=== PATIENT | male | born 1995 | race Caucasian/White ===

== ENCOUNTER 2016-06-25 23:40 | Emergency (ER) | payer MEDICAID ==
[~2016-06-25] VITALS: Ht 172.7 cm; Wt 68.0 kg
[~2016-06-25 23:40] MED LIST: ANUSOL-HC2.5% EX; BACTRIM DS 8001 TA1 PO; BACTROBAN 2% C1 INCH EX; BACTROBAN2% TP; FLEXERIL10 MG PO; GABAPENTIN100 MG PO; KEFLEX 250MG.250 MG PO; KEFLEX 500MG.500 MG PO; KEFLEX500 M1 PO; MAGNESIUM CITRA1 BOT PO; MEDROL 4MG. DOSE4 MG PO; MOTRIN400 MG PO; NIZORAL 2%15 GM/TUBE EX; NOMEDS *; NOMEDS XX; PREDNICOT10 MG PO; PREDNISONE 20MG20 MG PO; SEPTRA DS 800 M1 TAB PO; VOLTAREN75 MG PO; ZITHROMAX Z PA250 MG PO; ZOFRAN ODT4 MG PO
[2016-06-25] MEDS ORDERED: GABAPENTIN 600600 MG PO (23:54)
[2016-06-25] MEDS ORDERED: CYCLOBENZAPRINE10 M1 OR (23:54)
--- OUTSIDE RECORDS SUMMARY | 2016-06-26 00:16 | External Medical Summary Rpt ---
Author Author , Organization [employer] Address Unknown Phone Unavailable Care Team Providers Care Dye Weigher Helper Name Role Phone Michelle STALLWORTH MD PSC, Michelle Unavailable Unavailable Rema STALLWORTH MD PSC BEINEKE, SILVINOINEDAVID Unavailable Unavailable BESSON ABRIL, BESSON Unavailable Unavailable ABRIL [facility] Unavailable Unavailable SERVICE, [employer] [facility] Unavailable Unavailable SERVICE, [employer] [facility] SALVATORE CLAUDIA, Unavailable Unavailable ASLVATORE CLAUDIA [facility] Unavailable [place]available [place], [facility] [place] [facility] Unavailable [place] [facility] SARA RUIZ Unavailable Unavailable SARA LAMINE, SARA Unavailable Unavailable LAMINE MARLEN RUIZ, Unavailable Unavailable MARLEN RUIZ [facility] Unavailable Unavailable INC, [facility] Unavailable Unavailable HOSPITAL P, [facility], Unavailable Unavailable [facility] Unavailable Unavailable IMAGING ASS, [facility] Unavailable Unavailable SERVICES, [facility], Unavailable Unavailable [facility], [facility]available Unavailable PLL, [facility], [facility] ELMIRA TOD, ELMIRA TOD Unavailable Unavailable NU JOSHUA, NU Unavailable Unavailable JOSHUA NU JOSHUA, NU Unavailable Unavailable JOSHUA SADEK MOH, SADEK MOH Unavailable Unavailable SOKAN BAB, SOKAN BAB Unavailable Unavailable [facility], Unavailable Unavailable [facility] SOTINGEANU BIBI, Unavailable Unavailable SOTINGEANU BIBI [facility] Unavailable Unavailable #[id number], [facility] # Unavailable Unavailable [id number], [facility] # [id number] LACIE LAGUERRE, LACIE Unavailable Unavailable FOR MURPHY MEEK, Unavailable Unavailable MURPHY MEEK, BASIM Martinez Unavailable Unavailable Michelle STALLWORTH WRIGHT, Unavailable Unavailable Michelle Hodgson Purpose Continuity of Care Document - 04-21-2008 through 2016 Problems Code Diagnosis DOS Provider Status [id number] PAIN IN 03-02-2016 [facility] [place] [id number] UNSPECIFIED 03-02-2016 [facility], LESSER TOES PLLC INITIAL ENCNTR Z720 TOBACCO USE 03-02-2016 [facility] K529 NONINFECTIV 02-25-2016 [facility] E PHYSICIANS GASTROENTER GROUP ITIS & COLITIS UNS M545 LOW BACK 11-22-2015 [facility] PAIN PHYSICIANS GROUP 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 L739 FOLLICULAR 09-16-2015 [facility] DISORDER PHYS[facility], UNSPECIFIED PLLC K649 UNSPECIFIED 07-28-2015 [facility] PHYSICIANS HEMORRHOIDS GROUP K640 FIRST 07-25-2015 [facility] DEGREE PHYS[facility]ANS, HEMORRHOIDS PLLC [id number] WEDGE 07-21-2015 [facility] COMPRS FX PHYSICIANS UNS LUMBAR GROUP VERT INIT ENC CLOS FX R202 PARESTHESIA 01-15-2015 [facility] R42 DIZZINESS 01-15-2015 [facility] P [id number] FOREIGN 01-15-2015 [facility] BODY IN PHYSICIANS, MOUTH PLLC INITIAL ENCOUNTER [id number] UNS ADVERS 01-15-2015 [facility] EFFECT [facility]ANS, DRUG/MEDICA [facility] MENT INITIAL ENCNTR 5589 OTH&UNSPEC 09-05-2014 [facility] NONINFECTIO PHYSICIANS, US PLL GASTROENTER ITIS&COLITI S 6822 CELLULITIS 03-22-2014 [facility] P 1119 UNSPECIFIED 03-06-2012 [facility] DERMATOMYCO SERVICES SIS 1179 OTHER AND 03-06-2012 [facility] UNSPECIFIED [facility] MYCOSES INC 6868 OTH SPEC 03-06-2012 [facility] INFECTIONS INC SKIN&SUBCUT TISSUE 12805 DEGEN 04-25-2011 [place] 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 7242 LUMBAGO 04-25-2011 NU JOSHUA 95908 PATHOLOGIC 04-25-2011 [place] FRACTURE OF MEDICAL VERTEBRAE IMAGING ASS 4660 ACUTE 04-10-2010 [facility]ON[facility]IS [facility] 76304 PAIN IN 01-30-2010 [place] JOINT MEDICAL PELVIC IMAGING ASS REGION AND THIGH 24996 OTHER 01-30-2010 [place] DISORDER OF MEDICAL COCCYX IMAGING ASS 96236 CONTUSION 01-30-2010 [facility] 71250 OTHER 01-30-2010 [place] INJURY OF MEDICAL OTHER SITES IMAGING ASS OF TRUNK 29437 ABDOMINAL 12-21-2009 A Rema FERNANDEZ MD PSC GENERALIZED 76954 ABDOMINAL 12-20-2009 [place] PAIN, MEDICAL UNSPECIFIED IMAGING ASS SITE 37341 ACUTE 12-15-2009 [facility]OUS [facility] OTITIS INC MEDIA 3829 UNSPECIFIED 12-15-2009 [facility] OTITIS [facility]ERG[facility] MEDIA SERVICES 3899 UNSPECIFIED 12-15-2009 [facility] LOSS INC 0088 INTESTINAL 10-05-2009 A Rema STALLWROTH INFECTION PSC DUE TO OTHER ORGANISM NEC 6929 CONTACT 08-31-2009 A Rema STALLWORTH DERMATITIS& [facility] OTHER [facility] DUE UNSPEC CAUSE 7821 RASH AND 08-28-2009 [facility] OTHER HOSPITAL NONSPECIFIC SKIN ERUPTION V583 ATTENTION 06-28-2009 A Rema MACIAS MD [facility] DRESSINGS AND SUTURES 8910 OPEN WOUND 06-18-2009 [facility] KNEE [facility]ERG[facility]Y LEG&ANK SERVICES WITHOUT ASSOCIATES MENTION COMP 0340 STREPTOCOCC 11-27-2008 A Rema WANG MD [facility] THROAT 4659 ACUTE URIS 11-09-2008 A Rema BASS PSC UNSPECIFIED SITE 7862 COUGH 11-09-2008 A Rema STALLWORTH MD [facility] 6926 CONTACT 05-19-2008 [facility] DERMATITIS& EMERGENCY OTHER SERVICES [facility] DUE ASSOCIATES TO PLANTS 0549 HERPES 05-18-2008 A Rema STALLWORTH SIMPLEX PSC WITHOUT MENTION OF COMPLICATIO N Allergies, Adverse Reactions, Alerts Type Drug Allergy Adverse Reaction to Substance Substance Reaction Severity No Known Allergies - Unknown Mild Nka Medications Na ND Rx Da Fi Fi Am Da Di Ph RX Ph St me C No te ll ll ou ys ag ar # ys at rm s nt no ma ic us Or Da si cy ia de te s n re d CY 00 04 05 60 30 00 HO Ac CL 60 -0 -1 .0 00 ME ti OB 33 7- 2- 00 06 TO ve EN 07 20 20 08 WN ZA 93 17 17 24 ND 2 31 PH IN AR E MA 10 CY MG OF TA CY BL NT ET HI AN A GA 68 04 05 90 30 00 HO Ac BA 00 -0 -1 .0 00 ME ti PE 10 7- 2- 00 06 TO ve NT 00 20 20 08 WN IN 60 17 17 24 3 32 PH 60 AR 0 MA MG CY TA OF BL ET CY NT HI AN A CY 00 03 04 60 30 00 HO Ac CL 60 -0 -0 .0 00 ME ti OB 33 2- 7- 00 06 TO ve EN 07 20 20 08 WN ZA 93 17 17 24 ND 2 31 PH IN AR E MA 10 CY MG OF TA CY BL NT ET HI AN A GA 68 03 04 90 30 00 HO Ac BA 00 -0 -0 .0 00 ME ti PE 10 2- 7- 00 06 TO ve NT 00 20 20 08 WN IN 60 17 17 24 3 32 PH 60 AR 0 MA MG CY TA OF BL ET CY NT HI AN A ND 59 02 03 10 5 00 HO Ac ED 74 -2 -3 .0 00 ME ti NI 60 4- 1- 00 06 TO ve SO 17 20 20 08 WN NE 50 17 17 21 9 08 PH 20 AR MA MG CY TA OF BL ET CY NT HI AN A AZ 50 02 03 6. 5 00 HO Ac IT 11 -2 -3 00 00 ME ti HR 10 4- 1- 0 06 TO ve OM 78 20 20 08 WN YC 75 17 17 21 IN 1 09 PH AR 25 MA 0 CY MG OF TA BL CY ET NT HI AN A CY 00 01 02 60 30 00 HO Ac CL 60 -2 -2 .0 00 ME ti OB 33 5- 4- 00 06 TO ve EN 07 20 20 08 WN ZA 93 17 17 01 ND 2 82 PH IN AR E MA 10 CY MG OF TA CY BL NT ET HI AN A GA 01 02 90 30 00 HO Ac BA 00 -2 -2 .0 00 ME ti PE 10 5- 4- 00 06 TO ve NT 00 20 20 08 WN IN 60 17 17 01 3 83 PH 60 AR 0 MA MG CY TA OF BL ET CY NT HI AN A ND 00 01 02 30 10 00 HO Ac OM 60 -1 -1 .0 00 ME ti ET 35 3- 7- 00 06 TO ve FIERRO 43 20 20 07 WN ZI 83 17 17 95 NE 0 04 PH AR 25 MA CY MG OF TA BL CY ET NT HI AN A LO 00 01 02 15 5 00 HO Ac PE 37 -1 -1 .0 00 ME ti RA 82 3- 7- 00 06 TO ve OH 10 20 20 07 WN DE 00 17 17 95 2 1 03 PH AR MG MA CY CA PS OF UL E CY NT HI AN A GA 12 01 90 30 00 HO Ac BA 00 -2 -2 .0 00 ME ti PE 10 3- 7- 00 06 TO ve NT 00 20 20 07 WN IN 60 16 17 31 3 92 PH 60 AR 0 MA MG CY TA OF BL ET CY NT HI AN A CY 00 12 01 60 30 00 HO Ac CL 60 -2 -2 .0 00 ME ti OB 33 3- 7- 00 06 TO ve EN 07 20 20 07 WN ZA 93 16 17 31 ND 2 91 PH IN AR E MA 10 CY MG OF TA CY BL NT ET HI AN A Ib 62 07 0 No up 58 -1 ro 40 2- Lo fe 74 20 ng n 60 13 er 40 1 0M Ac G ti Ta ve bl et AZ 00 02 02 0 4. 4 EA 21 GA Ac IT 09 -2 -[address] 44 IN ti HR 37 8- 8- 0 SI 58 EY ve OM 14 20 20 DE YC 61 11 11 OH IN 8 PH CH AR AE 25 MA L 0 CY S MG OF TA BL CY ET NT HI AN A 00 02 02 0 10 5 EA 21 GA Ac 14 -2 -[address] 44 IN ti 31 8- 8- 00 SI 57 EY ve 47 20 20 DE 31 11 11 OH 0 PH CH AR AE MA L CY S OF CY NT HI AN A DI 00 12 12 0 14 7 SO 36 GA Ac CL 37 -2 -2 .0 PE 06 IN ti OF 86 0- 0- 00 RS 39 EY ve EN 28 20 20 AC 11 10 10 FA OH 0 OH CH SO LY AE D L DR DR Castanon UG 75 MG TA B SM 49 11 11 0 29 1 EA 19 SO Ac 34 -0 -[address] 88 KA ti MA 80 8- 8- 00 SI 38 N ve GN 69 20 20 0 DE BA ES 64 10 10 BA IU 9 PH TU M AR ND CI MA E TR CY O AT E OF SO CHAMP CY TI NT ON HI AN A CE 00 11 11 0 21 7 EA 19 GA Ac PH 09 -0 -[address] 82 IN ti AL 33 4- 4- 00 SI 88 EY ve EX 14 20 20 DE IN 70 10 10 OH 5 PH CH 50 AR AE 0 MA L MG CY S CA OF PS UL CY E NT HI AN A 00 10 10 0 50 25 EA 19 MO Ac 06 -0 -[address] 41 SE ti 60 5- 5- 00 SI 51 S ve [address] 45 10 10 EP 5 PH HE AR N MA A CY OF CY NT HI AN A CE 68 05 05 0 21 7 WA 70 GA Ac PH 18 -0 -0 .0 L- 69 IN ti AL 00 7- 8- 00 MA 92 EY ve EX 12 20 20 RT 1 IN 20 10 10 OH 1 PH CH 50 AR AE 0 MA L MG CY S # CA PS 10 UL 05 E 91 EF 00 03 03 2 30 30 EA 16 MO Ac FE 00 -2 -[address] 88 SE ti XO 80 2- 2- 00 SI 85 S ve R [address] XR 32 10 10 EP 2 PH HE 75 AR N MA A MG CY CA OF PS UL CY E NT HI AN A AZ 00 02 02 00 6. 5 EA 16 WR Ac IT 09 -1 -[address] 31 IG ti HR 37 0- 6- 0 SI 88 HT ve OM 14 20 20 DE YC 61 10 10 AR IN 8 PH DY AR C 25 MA 0 CY MG OF TA CY BL NT ET HI AN A LO 45 02 02 00 10 10 EA 16 WR Ac RA 80 -1 -[address] 31 IG ti TA 20 0- 6- 00 SI 89 HT ve DI 65 20 20 DE NE 08 10 10 AR 7 PH DY 10 AR C MA MG CY TA OF BL CY ET NT HI AN A VE 65 10 11 00 30 30 WA 70 RI Ac NL 58 -1 -0 .0 L- 41 SH ti AF 00 6- 5- 00 MA 66 ER ve AX 30 20 20 RT 6 IN 20 09 09 RI E 9 PH CH HC AR AR L MA D ER CY 75 #5 91 MG TA B 59 10 10 00 20 10 WA 70 RI Ac 76 -1 -2 .0 L- 41 SH ti 21 6- 2- 00 MA 66 ER ve 05 20 20 RT 5 00 09 09 RI 5 PH CH AR AR MA D CY #5 91 VE 00 09 10 00 14 14 WA 70 WR Ac NL 09 -3 -0 .0 L- 39 IG ti AF 37 0- 8- 00 MA 17 HT ve AX 38 20 20 RT 9 IN 20 09 09 AR E 1 PH DY HC AR C L MA 75 CY MG #5 91 TA BL ET 60 09 10 00 18 5 EA 14 RI Ac 25 -2 -[address] 45 SH ti 80 8- 8- 00 SI 54 ER ve 23 20 20 0 DE 91 09 09 RI 6 PH CH AR AR MA D CY OF CY NT HI AN A AN 24 03 07 01 10 24 WA 70 WR Ac TI 20 -1 -1 .0 L- 12 IG ti PY 80 3- 6- 00 MA 19 HT ve RI 56 20 20 RT 9 NE 16 09 09 AR -B 2 PH DY EN AR C ZO MA CA CY IN E #[address] OP DE 51 04 04 00 30 4 EA 12 RI Ac SO 67 -0 -[address] 22 SH ti XI 21 6- 3- 00 SI 18 ER ve ME 27 20 20 DE TA 10 09 09 RI SO 1 PH CH NE AR AR MA D 0. CY 05 % OF CR CY EA NT M HI AN A 64 04 04 00 15 5 EA 12 RI Ac 45 -0 -[address] 22 SH ti 50 6- 3- 00 SI 17 ER ve 99 20 20 DE 39 09 09 RI 4 PH CH AR AR MA D CY OF CY NT HI AN A 64 04 04 01 15 5 EA 12 RI Ac 45 -0 -[address] 22 SH ti 50 6- 3- 00 SI 17 ER ve 99 20 20 DE 39 09 09 RI 4 PH CH AR AR MA D CY OF CY NT HI AN A CE 00 03 04 00 30 10 EA 12 WR Ac PH 09 -2 -[address] 08 IG ti AL 33 6- 9- 00 SI 23 HT ve EX 14 20 20 DE IN 70 09 09 AR 5 PH DY 50 AR C 0 MA MG CY CA OF PS CY UL NT E HI AN A 53 03 03 00 15 5 WA 70 GA Ac 74 -1 -2 .0 L- 11 IN ti 60 0- 6- 00 MA 54 EY ve 13 20 20 RT 7 10 09 09 OH 5 PH CH AR AE MA L CY S #5 91 CE 68 03 03 00 21 7 WA 70 GA Ac PH 18 -1 -2 .0 L- 11 IN ti AL 00 0- 6- 00 MA 54 EY ve EX 12 20 20 RT 8 IN 10 09 09 OH 1 PH CH 25 AR AE 0 MA L MG CY S CA #5 PS 91 UL E AN 24 03 03 00 10 24 WA 70 WR Ac TI 20 -1 -2 .0 L- 12 IG ti PY 80 3- 6- 00 MA 19 HT ve RI 56 20 20 RT 9 NE 16 09 09 AR -B 2 PH DY EN AR C ZO MA CA CY IN E #[address] OP Vital Signs 08-23-2012 07:07 Name Value Interpretat Reference Comment ion Range Body 97.8 [degF] Temperature BP 69 mm[Hg] Diastolic BP Systolic 113 mm[Hg] Heart 89 /min Rate/Pulse O2% 97 % Respiratory 18 /min Rate Procedures Procedure DOS Code [place] [address] [facility] MINIMUM 7 [facility] 2 VIEWS INC INC MRI 48667 [facility] SPINAL 6 [facility] CANAL INC INC LUMBAR W/O CONTRAST MATERIAL 3D 03764 MANGO CHASE RENDERING 6 MEDICAL CLAUDIA W/INTERP IMAGING & ASS POSTPROCE SS SUPERVISI ON THERAPEUT 24408 [facility] IC PX 1/> 6 [facility] AREAS INC INC EACH 15 MIN EXERCISES APPL 78500 [facility] MODALITY 6 [facility] 1/> AREAS INC INC ELEC STIMJ UNATTENDE D APPLICATI 30114 [facility] ON 6 [facility] MODALITY INC INC 1/> AREAS HOT/COLD PACKS MANUAL 87191 [facility] THERAPY 6 [facility] TQS 1/> INC INC REGIONS EACH 15 MINUTES MANUAL 44873 [facility] THERAPY 6 [facility] TQS 1/> INC INC REGIONS EACH 15 MINUTES APPLICATI 75159 [facility] ON 6 [facility] MODALITY INC INC 1/> AREAS HOT/COLD PACKS APPL 38328 [facility] MODALITY 6 [facility] 1/> AREAS INC INC ELEC STIMJ UNATTENDE D THERAPEUT 49587 [facility] IC PX 1/> 6 [facility] AREAS INC INC EACH 15 MIN EXERCISES PHYSICAL 33015 [facility] THERAPY 6 [facility] EVALUATIO INC INC N UNCLASSIF J3490 [facility] IED DRUGS 6 [facility] INC INC RADEX 70870 [facility] SPINE 6 MEDICAL LUMBOSACR IMAGING AL 2/3 ASS VIEWS ECG 10220 [facility] ROUTINE 5 [facility] ECG INC INC W/LEAST 12 LDS TRCG ONLY W/O I&R ECG 12-04-201 89836 [facility] ROUTINE 5 [facility] W/LEAST P 12 LDS I&R ONLY GROUND A0425 [facility] MILEAGE 5 AMBULANCE AMBULANCE PER SERVICE SERVICE STATUTE MILE AMBULANCE A0429 [facility] SERVICE 5 AMBULANCE AMBULANCE BLS SERVICE SERVICE EMERGENCY TRANSPORT CUL BACT 46985 [facility] XCPT 5 [facility] URINE INC INC BLOOD/STO OL AEROBIC ISOL CUL BACT 99271 [facility] AEROBIC 5 [facility] ADDL INC INC METHS DEFINITIV E EA ISOL SUSCEPTIB 01765 [facility] LTY STDY 5 [facility] ANTIMICRB INC INC IAL MICRO/AGA R DILUTJ RADEX 31572 [place] SALVATORE SPINE 2 MEDICAL CLAUDIA LUMBOSACR IMAGING AL 2/3 ASS VIEWS RADEX 06778 [facility] SPINE 2 [facility] LUMBOSACR INC INC AL MINIMUM 4 VIEWS IAADI 54216 [facility] INFLUENZA 1 [facility] B VIRUS INC INC IAADI 07589 [facility] INFFLUENZ 1 [facility] [place] [address] [facility] STREPTOCO 1 [facility] CCUS INC INC GROUP A RADEX 41204 [facility] SPINE 0 [facility] LUMBOSACR INC INC AL MINIMUM 4 VIEWS RADEX 88551 [facility] SACRUM & 0 [facility] COCCYX INC INC MINIMUM 2 VIEWS RADIOLOGI 98951 [facility] C 0 [facility] EXAMINATI INC INC ON PELVIS 1/2 VIEWS RADEX ABD 46916 [facility] COMPL 0 [facility] AQT ABD INC INC W/S/E/D VIEWS 1 VIEW CH BLOOD 75030 [facility] COUNT 0 [facility] COMPLETE INC INC AUTO&AUTO DIFRNTL WBC COMPREHEN 74539 [facility] SIVE 0 [facility] [address] [facility] R[facility] AMYLASE 0 [place] [address] [facility] LIPASE 0 [facility] INC INC SMPL 34819 WILFREDO RUIZ, REPAIR 0 EMERGENCY MARLEN S SCALP/NEC SERVICES K/AX/NETO T/TRUNK ASSOCIATE 2.6-7.5CM S CLOSURE 8659 [facility] SKIN&SUBC 0 [facility] INC TISSUE OTHER SITES IADNA 46991 Michelle BRUNO 9 BASIM Hodgson CCUS PSC GROUP A QUANTIFIC ATION IADNA 17249 Michelle BRUNO 9 BASIM Hodgson CCUS PSC GROUP A QUANTIFIC ATION Encounters Encounter Start End Date Code Location Performer Type Date EMERGENCY 01526 [facility] 7 7 [facility] VISIT LIMITED/M INOR PROB EMERGENCY 90340 [facility] RUIZ 7 7 PHYSICIAN [facility] S, [facility] T VISIT MODERATE SEVERITY HOSPITAL [facility] - 7 7 [facility] 41341 [facility] OUT[facility] 7 7 PHYSICIAN T VISIT S GROUP 25 MINUTES OFFICE 94571 [facility] OUTPATIEN 6 6 PHYSICIAN LAMINE T VISIT S GROUP 15 MINUTES HOSPITAL [facility] - 6 6 [facility] 62561 [facility] OUTPATIEN 6 6 PHYSICIAN LAMINE T VISIT S GROUP 15 MINUTES HOSPITAL [facility] - 6 6 [facility] EMERGENC[facility] 75655 [facility] GAMA 6 6 PHYSICIAN [facility] S, [facility] T VISIT MODERATE SEVERITY EMERGENCY 43336 [facility] 6 6 [facility] T VISIT LOW/MODER SEVERITY HOSPITAL [facility] - 6 6 [facility] HOSP[facility] - 6 6 [facility] OUTPATIEN INC T OFFICE 24227 [facility] SARA OUTPATIEN 6 6 PHYSICIAN LAMINE T VISIT S GROUP 10 MINUTES OFFICE 29627 [facility] ELMIRA TOD OUTPATIEN 6 6 PHYSICIAN T NEW 20 S GROUP MINUTES OFFICE 42007 [facility] SARA OUTPATIEN 6 6 PHYSICIAN LAMINE T VISIT S GROUP 10 MINUTES EMERGENCY 44451 [facility] 6 6 [facility] DEPARTMEN INC T VISIT LIMITED/M INOR PROB HOSPITAL [facility] - 6 6 [facility] OUTPATIEN INC T EMERGENCY 30808 [facility] MEDELLIN 6 6 PHYSICIAN FOR DEPARTMEN S, PLLC T VISIT MODERATE SEVERITY OFFICE 50120 [facility] SARA OUTPATIEN 6 6 PHYSICIAN LAMINE T NEW 30 S GROUP MINUTES EMERGENCY 23059 [facility] RUIZ 6 6 PHYSICIAN LAMINE DEPARTMEN S, PLLC T VISIT MODERATE SEVERITY EMERGENCY 56612 [facility] 5 5 [facility] DEPARTMEN INC T VISIT LOW/MODER SEVERITY HOSPITAL [facility] - 5 5 [facility] OUTPATIEN INC T EMERGENCY 87683 [facility] MARISCAL 5 5 PHYSICIAN U BIBI DEPARTMEN S, PLLC T VISIT HIGH/URGE NT SEVERITY EMERGENCY 73195 [facility] MARISCAL 5 5 PHYSICIAN U BIBI DEPARTMEN S, PLLC T VISIT MODERATE SEVERITY EMERGENCY 88727 [facility] 5 5 [facility] DEPARTMEN INC T VISIT LOW/MODER SEVERITY HOSPITAL [facility] - 5 5 [facility] OUTPATIEN INC T Emergency SNOW Chapa MD (ER) 3 07:15 3 07:15 [facility] - 3 3 [facility] OUTPATIEN INC T EMERGENCY 96299 WILFREDO BUTT 3 3 EMERGENCY DEPARTMEN SERVICES T VISIT MODERATE SEVERITY EMERGENCY 37055 [facility] 3 3 [facility] DEPARTMEN INC T VISIT LIMITED/M INOR PROB EMERGENCY 15097 WILFREDO RUIZ 2 2 [facility] DEPARTMEN SERVICES T VISIT MODERATE SEVERITY OFFICE 63441 NU ROSSHER OUTPATIEN 2 2 JOSHUA JOSHUA T VISIT 15 MINUTES EMERGENCY 39938 [facility] 2 2 [facility] DEPARTMEN INC T VISIT LOW/MODER SEVERITY HOSPITAL [facility] - 2 2 [facility] OUTPATIEN INC T EMERGENCY 35655 WILFREDO RUIZ 1 1 EMERGENC[facility] DEPART[facility] SERVICES T VISIT HIGH/URGE NT SEVERITY HOSPITAL [facility] - 1 1 [facility] OUTPATIEN INC T EMERGENCY 93730 [facility] 1 1 [facility] DEPARTMEN INC T VISIT LOW/MODER SEVERITY HOSPITAL [facility] - 0 0 [facility] OUTPATIEN INC T EMERGENCY 86972 [facility] 0 0 [facility] DEPARTMEN INC T VISIT LOW/MODER SEVERITY OFFICE 23284 A Rema NUÑEZ 0 0 BASIM VAZQUEZ T VISIT PSC 15 MINUTES EMERGENCY 12064 WILFREDO BUTT DEPT 0 0 EMERGENCY VISIT SERVICES HIGH SEVERITY& THREAT [facility]K - 0 0 [facility] OUTPATIEN INC T EMERGENCY 05472 [facility] 0 0 [facility] DEPARTMEN INC T VISIT MODERATE SEVERITY EMERGENCY 63036 [facility] 0 0 [facility] DEPARTMEN INC T VISIT LOW/MODER SEVERITY EMERGENCY 04718 WILFREDO RUIZ 0 0 EMERGENCY [facility] DEPARTMEN SERVICES T VISIT MODERATE SEVERITY HOSPITAL [facility] - 0 0 [facility] OUTPATIEN INC T OFFICE 59427 Michelle NUÑEZ 0 0 BASIM VAZQUEZ T VISIT PSC 15 MINUTES OFFICE 67116 A Rema Martinez OUTPATIEN 0 0 BASIM VAZQUEZ T VISIT PSC 15 MINUTES OFFICE 87407 A Michelle DYER OUTPATIEN 0 0 BASIM Hodgson T VISIT PSC 15 MINUTES EMERGENCY 35045 [facility] 0 0 [facility] T VISIT LIMITED/M INOR [facility] BATOOL - 0 0 [facility] T OFFICE 65155 A Michelle DYER OUTPATIEN 0 0 BASIM Hodgson T VISIT PSC 15 MINUTES EMERGENCY 08052 WILFREDO RUIZ, 0 0 EMERGENCY [facility] SERVICES T VISIT MODERATE ASSOCIATE SEVERITY [facility] - 0 0 [facility] T EMERGENCY 20203 [facility] 0 0 [facility] VISIT LOW/MODER SEVERITY OFFICE 93319 A Michelle DYER OUTPATIEN 0 0 BASIM Hodgson T VISIT PSC 15 MINUTES OFFICE 38176 Michelle BRUNO OUTPATIEN 9 9 BASIM Hodgson T VISIT PSC 15 MINUTES OFFICE 97237 Michelle BRUNO OUTPATIEN 9 9 BASIM Hodgson T VISIT PSC 15 MINUTES EMERGENCY 52710 WILFREDO MEEK 9 9 EMERGENCY [facility] SERVICES T VISIT MODERATE ASSOCIATE SEVERITY EMERGENCY 97842 [facility] 9 9 [facility] DEPARTMEN INC T VISIT LIMITED/M [facility] - 9 9 [facility] OUTPATIEN INC T OFFICE 69414 Michelle BRUNO OUTPATIEN 9 9 BASIM Hodgson T VISIT PSC 15 MINUTES OFFICE 67703 Michelle BRUNO OUTPATIEN 9 9 BASIM Hodgson T VISIT PSC 15 MINUTES OFFICE 64104 Michelle BRUNO OUTPATIEN 9 9 BASIM Hodgson T VISIT PSC 15 MINUTES OFFICE 95419 Michelle BRUNO OUTDAVID 9 9 BASIM Hodgson T VISIT PSC 15 MINUTES EMERGENCY 45125 [facility] 9 9 [facility] INC T VISIT LOW/MODER SEVERITY HOSPITAL [facility] - 9 9 [facility] OUTPATIEN INC T EMERGENCY 37890 JOSEPH RUIZ, 9 9 [facility] T VISIT ON MODERATE SEVERITY
--- OUTSIDE RECORDS SUMMARY | 2016-06-26 00:16 | External Medical Summary Rpt ---
Author Author , Organization [employer] Address Unknown Phone Unavailable Care Team Providers Care Flavorings Compounder Name Role Phone Michelle STALLWORTH MD PSC, Michelle Unavailable Unavailable Rema STALLWORTH MD PSC BEINEKE, SILVINOINEDAVID Unavailable Unavailable BESSON ABRIL, BESSON Unavailable Unavailable ABRIL [facility] Unavailable Unavailable SERVICE, [facility] Unavailable Unavailable SERVICE, [facility] SALVATORE CLAUDIA, Unavailable Unavailable SALVATORE CLAUDIA [facility] Unavailable [place], [facility] [place] [facility] [place] [facility] SARA RUIZ Unavailable Unavailable SARA LAMINE, SARA Unavailable Unavailable LAMINE MARLEN RUIZ, Unavailable Unavailable MARLEN RUIZ [facility] Unavailable Unavailable INC, [facility] Unavailable Unavailable HOSPITAL P, [facility], Unavailable Unavailable [facility] Unavailable [facility]available IMAGING ASS, [facility] Unavailable Unavailable SERVICES, [facility], Unavailable Unavailable [facility], Unavailable Unavailable PLL, [facility], [facility] ELMIRA TOD, ELMIRA TOD Unavailable Unavailable NU JOSHUA, NU Unavailable Unavailable JOSHUA NU JOSHUA, NU Unavailable Unavailable JOSHUA SADEK MOH, SADEK MOH Unavailable Unavailable SOKAN BAB, SOKAN BAB Unavailable Unavailable [facility], Unavailable Unavailable [facility] SOTINGEANU BIBI, Unavailable Unavailable SOTINGEANU BIBI [facility] Unavailable Unavailable #[id number], [facility] # Unavailable Unavailable [id number], [facility] # [id number] LACIE LAGUERRE, LACIE Unavailable Unavailable FOR MURPHY MEEK, Unavailable Unavailable MURPHY MEEK, BASIM Martinez Unavailable Unavailable Michelle STALLWORTH WRIGHT, Unavailable Unavailable Michelle Hodgson Purpose Continuity of Care Document - 04-21-2008 through 2016 Problems Code Diagnosis DOS Provider Status [id number] PAIN IN 03-02-2016 [facility] [id number] UNSPECIFIED 03-02-2016 [facility], LESSER TOES PLLC INITIAL ENCNTR Z720 TOBACCO USE 03-02-2016 [facility] K529 NONINFECTIV 02-25-2016 [facility] E PHYSICIANS GASTROENTER GROUP ITIS & COLITIS UNS M545 LOW BACK 11-22-2015 [facility] PAIN PHYSICIANS GROUP 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 L739 FOLLICULAR 09-16-2015 [facility] DISORDER [facility], UNSPECIFIED PLLC K649 UNSPECIFIED 07-28-2015 [facility] HEMORRHOIDS GROUP K640 FIRST 07-25-2015 [facility] DEGREE [facility], HEMORRHOIDS PLLC [id number] WEDGE 07-21-2015 [facility] COMPRS FX PHYSICIANS UNS LUMBAR GROUP VERT INIT ENC CLOS FX R202 PARESTHESIA 01-15-2015 [facility] R42 DIZZINESS 01-15-2015 [facility] P [id number] FOREIGN 01-15-2015 [facility] B[facility] IN PHYSICIANS, MOUTH PLLC INITIAL ENCOUNTER [id number] UNS ADVERS 01-15-2015 [facility] EFFECT [facility]ANS, DRUG/[facility] MENT INITIAL ENCNTR 5589 OTH&UNSPEC 09-05-2014 [facility] NONINFECTIO PHYSICIANS, US PLL GASTROENTER ITIS&COLITI S 6822 CELLULITIS 03-22-2014 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 7242 LUMBAGO 04-25-2011 NU JOSHUA 17759 PATHOLOGIC 04-25-2011 [facility] FRACTURE OF MEDICAL VERTEBRAE IMAGING ASS 4660 ACUTE 04-10-2010 [facility] 59264 PAIN IN 01-30-2010 [facility] JOINT MEDICAL PELVIC IMAGING ASS REGION AND THIGH 89656 OTHER 01-30-2010 [facility] DISORDER OF MEDICAL COCCYX IMAGING ASS 63137 CONTUSION 01-30-2010 [facility] 09967 OTHER 01-30-2010 [facility] INJURY OF MEDICAL OTHER SITES IMAGING ASS OF TRUNK 32767 ABDOMINAL 12-21-2009 A Rema FERNANDEZ MD PSC GENERALIZED 42925 ABDOMINAL 12-20-2009 [facility] PAIN, MEDICAL UNSPECIFIED IMAGING ASS SITE 80270 ACUTE 12-15-2009 [facility] SEROUS [facility] OTITIS INC MEDIA 3829 UNSPECIFIED 12-15-2009 [facility]IS [facility]Y MEDIA SERVICES 3899 UNSPECIFIED 12-15-2009 [facility]ARING [facility] LOSS INC 0088 INTESTINAL 10-05-2009 A Rema STALLWORTH INFECTION PSC DUE TO OTHER ORGANISM NEC 6929 CONTACT 08-31-2009 A Rema STALLWORTH DERMATITIS& [facility] OTHER ECZEMA DUE UNSPEC CAUSE 7821 RASH AND 08-28-2009 [facility] OTHER HOSPITAL NONSPECIFIC SKIN ERUPTION V583 ATTENTION 06-28-2009 A Rema MACIAS MD [facility] DRESSINGS AND SUTURES 8910 OPEN WOUND 06-18-2009 [place] KNEE [facility]Y LEG&ANK SERVICES WITHOUT ASSOCIATES MENTION COMP 0340 STREPTOCOCC 11-27-2008 A Rema WANG MD [facility] THROAT 4659 ACUTE URIS 11-09-2008 A Rema BASS PSC UNSPECIFIED SITE 7862 COUGH 11-09-2008 A Rema STALLWORTH MD [facility] 6926 CONTACT 05-19-2008 [place] DERMATITIS& EMERGENCY OTHER SERVICES ECZEMA DUE ASSOCIATES [...] 08 WN ZA 93 17 17 24 RI 2 31 PH IN AR E MA [...] 08 WN ZA 93 17 17 24 RI 2 31 PH IN AR E MA [...] BL ET CY NT HI AN A RI 59 02 03 10 5 00 HO [...] 08 WN ZA 93 17 17 01 RI 2 82 PH IN AR E MA [...] BL ET CY NT HI AN A RI 00 01 02 30 10 00 HO [...] 82 3- 7- 00 06 TO ve AR 10 20 20 07 WN DE 00 [...] 07 WN ZA 93 16 17 31 RI 2 91 PH IN AR E MA [...] 20 20 DE YC 61 11 11 AR IN 8 PH CH AR AE 25 MA L 0 CY S MG OF TA BL CY ET NT HI AN A 00 02 02 0 10 5 EA 21 GA Ac 14 -2 -[address] 44 IN ti 31 8- 8- 00 SI 57 EY ve 47 20 20 DE 31 11 11 AR 0 PH CH AR AE MA L CY S OF CY NT HI AN A DI 00 12 12 0 14 7 SO 36 GA Ac CL 37 -2 -2 .0 PE 06 IN ti OF 86 0- 0- 00 RS 39 EY ve EN 28 20 20 AC 11 10 10 FA AR 0 AR CH SO LY AE D L DR [...] 20 20 DE IN 70 10 10 AR 5 PH CH 50 AR AE 0 [...] 20 RT 1 IN 20 10 10 AR 1 PH CH 50 AR AE 0 [...] 20 20 RT 7 10 09 09 AR 5 PH CH AR AE MA L CY S #5 91 CE 68 03 03 00 21 7 WA 70 GA Ac PH 18 -1 -2 .0 L- 11 IN ti AL 00 0- 6- 00 MA 54 EY ve EX 12 20 20 RT 8 IN 10 09 09 AR 1 PH CH 25 AR AE 0 [...] DOS Code Location Performer Comment RADEX TOE 65641 [facility] MINIMUM 7 [facility] 2 VIEWS INC INC MRI 90209 [facility] SPINAL 6 [facility] CANAL INC INC LUMBAR W/O CONTRAST MATERIAL 3D 37196 MANGO CHASE RENDERING 6 MEDICAL CLAUDIA W/INTERP IMAGING & ASS POSTPROCE SS SUPERVISI ON THERAPEUT 67973 [facility] IC PX 1/> 6 [facility] AREAS INC INC EACH 15 MIN EXERCISES APPL 48625 [facility] MODALITY 6 [facility] 1/> AREAS INC INC ELEC STIMJ UNATTENDE D APPLICATI 08408 [facility] ON 6 [facility] MODALITY INC INC 1/> AREAS HOT/COLD PACKS MANUAL 44625 [facility] THERAPY 6 [facility] TQS 1/> INC INC REGIONS EACH 15 MINUTES MANUAL 16415 [facility] THERAPY 6 [facility] TQS 1/> INC INC REGIONS EACH 15 MINUTES APPLICATI 00670 [facility] ON 6 [facility] MODALITY INC INC 1/> AREAS HOT/COLD PACKS APPL 75467 [facility] MODALITY 6 [facility] 1/> AREAS INC INC ELEC STIMJ UNATTENDE D THERAPEUT 10919 [facility] IC PX 1/> 6 [facility] AREAS INC INC EACH 15 MIN EXERCISES PHYSICAL 15209 [facility] THERAPY 6 [facility] EVALUATIO INC INC N UNCLASSIF J3490 [facility] IED DRUGS 6 [facility] INC INC RADEX 47263 [facility]ME[facility] SPINE 6 MEDICAL LUMBOSACR IMAGING AL 2/3 ASS VIEWS ECG 73722 [facility] ROUTINE 5 [facility] ECG INC INC W/LEAST 12 LDS TRCG ONLY W/O I&R ECG 12-04-201 83037 [facility] SNOW[place] ROUTINE 5 [facility] W/LEAST P 12 LDS I&R ONLY GROUND A0425 [facility] MILEAGE 5 AMBULANCE AMBULANCE PER SERVICE SERVICE STATUTE MILE AMBULANCE A0429 [facility] SERVICE 5 AMBULANCE AMBULANCE BLS SERVICE SERVICE EMERGENCY TRANSPORT CUL BACT 77262 [facility] XCPT 5 [facility] URINE INC INC BLOOD/STO OL AEROBIC ISOL CUL BACT 60271 [facility] AEROBIC 5 [facility] ADDL INC INC METHS DEFINITIV E EA ISOL SUSCEPTIB 08352 [facility] LTY STDY 5 [facility] ANTIMICRB INC INC IAL MICRO/AGA R DILUTJ RADEX 55173 [facility] SALVATORE SPINE 2 MEDICAL CLAUDIA LUMBOSACR IMAGING AL 2/3 ASS VIEWS RADEX 66890 [facility] SPINE 2 [facility] LUMBOSACR INC INC AL MINIMUM 4 VIEWS IAADI 80016 [facility] INFLUENZA 1 [facility] B VIRUS INC INC IAADI 19640 [facility] INFFLUENZ 1 [facility] [place] [address] [facility] STREPTOCO 1 [facility] CCUS INC INC GROUP A RADEX 50956 [facility] SPINE 0 [facility] LUMBOSACR INC INC AL MINIMUM 4 VIEWS RADEX 57755 [facility] SACRUM & 0 [facility] COCCYX INC INC MINIMUM 2 VIEWS RADIOLOGI 60052 [facility] C 0 [facility] EXAMINATI INC INC ON PELVIS 1/2 VIEWS RADEX ABD 89907 [facility] COMPL 0 [facility] AQT ABD INC INC W/S/E/D VIEWS 1 VIEW CH BLOOD 65585 [facility] COUNT 0 [facility] COMPLETE INC INC AUTO&AUTO DIFRNTL WBC COMPREHEN 00699 [facility] SIVE 0 [facility] [address] [facility] AMYLASE 0 [place] [address] [facility] LIPASE 0 [facility] INC INC SMPL 57915 WILFREDO RUIZ, REPAIR 0 EMERGENCY MARLEN S SCALP/NEC SERVICES K/AX/NETO T/TRUNK ASSOCIATE 2.6-7.5CM S CLOSURE 8659 [facility] SKIN&SUBC 0 [facility] INC INC TISSUE OTHER SITES IADNA 56357 Michelle BRUNO 9 BASIM Hodgson CCUS PSC GROUP A QUANTIFIC ATION IADNA 61270 Michelle BRUNO 9 BASIM Hodgson CCUS PSC GROUP A QUANTIFIC ATION Encounters Encounter Start End Date Code Location Performer Type Date EMERGENCY 55715 [facility] 7 7 [facility] T VISIT LIMITED/M INOR PROB EMERGENCY 02282 [facility] RUIZ 7 7 PHYSICIAN [facility] S, [facility] T VISIT MODERATE SEVERITY HOSPITAL [facility] - 7 7 [facility] [place] 816[facility] PHYSICIAN T VISIT S GROUP 25 MINUTES OFFICE 19822 [facility] OUTPATIEN 6 6 PHYSICIAN LAMINE T VISIT S GROUP 15 MINUTES HOSPITAL [facility] - 6 6 [facility] [place] OFF[facility] 71949 [facility] OUTPATIEN 6 6 PHYSICIAN LAMINE T VISIT S GROUP 15 MINUTES HOSPITAL ARMIK - 6 6 [facility] T EMERGENCY 80447 [facility] GAMA 6 6 PHYSICIAN [facility] S, [facility] T VISIT MODERATE SEVERITY EMERGENCY 33008 [facility] 6 6 [facility] T VISIT LOW/MODER SEVERITY HOSPITAL [facility] - 6 6 [facility] T HOSPITAL [facility] - 6 6 [facility] OUTPATIEN INC T OFFICE 90888 [facility] SARA OUTPATIEN 6 6 PHYSICIAN LAMINE T VISIT S GROUP 10 MINUTES OFFICE 86988 [facility] ELMIRA TOD OUTPATIEN 6 6 PHYSICIAN T NEW 20 S GROUP MINUTES OFFICE 21811 [facility] SARA OUTPATIEN 6 6 PHYSICIAN LAMINE T VISIT S GROUP 10 MINUTES EMERGENCY 62244 [facility] 6 6 [facility] DEPARTMEN INC T VISIT LIMITED/M INOR PROB HOSPITAL [facility] - 6 6 [facility] OUTPATIEN INC T EMERGENCY 67716 [facility] MEDELLIN 6 6 PHYSICIAN FOR DEPARTMEN S, PLLC T VISIT MODERATE SEVERITY OFFICE 21890 [facility] SARA OUTPATIEN 6 6 PHYSICIAN LAMINE T NEW 30 S GROUP MINUTES EMERGENCY 74428 [facility] RUIZ 6 6 PHYSICIAN LAMINE DEPARTMEN S, PLLC T VISIT MODERATE SEVERITY EMERGENCY 96353 [facility] 5 5 [facility] DEPARTMEN INC T VISIT LOW/MODER SEVERITY HOSPITAL [facility] - 5 5 [facility] OUTPATIEN INC T EMERGENCY 90958 [facility] MARISCAL 5 5 PHYSICIAN U BIBI DEPARTMEN [facility], PLLC T VISIT HIGH/URGE NT SEVERITY EMERGENCY 19447 [facility] MARISCAL 5 5 PHYSICIAN U [facility] T VISIT MODERATE SEVERITY EMERGENCY 19723 [facility] 5 5 [facility] DEPARTMEN INC T VISIT LOW/MODER SEVERITY HOSPITAL [facility] - 5 5 [facility] OUTPATIEN INC T Emergency SNOW Chapa MD (ER) 3 07:15 3 07:15 [facility] - 3 3 [facility] OUTPATIEN INC T EMERGENCY 99212 WILFREDO BUTT 3 3 EMERGENCY [facility] SERVICES T VISIT MODERATE SEVERITY EMERGENCY 88530 [facility] 3 3 [facility] DEPARTMEN INC T VISIT LIMITED/M INOR PROB EMERGENCY 61798 WILFREDO RUIZ 2 2 EMERGENCY [facility] DEPARTMEN SERVICES T VISIT MODERATE SEVERITY OFFICE 66828 NU ROSSHER OUTPATIEN 2 2 JOSHUA JOSHUA T VISIT 15 MINUTES EMERGENCY 74120 [facility] 2 2 [facility] DEPARTMEN INC T VISIT LOW/MODER SEVERITY HOSPITAL [facility] - 2 2 [facility] OUTPATIEN INC T EMERGENCY 55538 WILFREDO RUIZ 1 1 EMERGENCY [facility] DEPARTMEN SERVICES T VISIT HIGH/URGE NT SEVERITY HOSPITAL [facility] - 1 1 [facility] OUTPATIEN INC T EMERGENCY 69936 [facility] 1 1 [facility] DEPARTMEN INC T VISIT LOW/MODER SEVERITY HOSPITAL [facility] - 0 0 [facility] OUTPATIEN INC T EMERGENCY 23418 [facility] 0 0 [facility] DEPARTMEN INC T VISIT LOW/MODER SEVERITY OFFICE 33194 A Rema NUÑEZ 0 0 BASIM VAZQUEZ T VISIT PSC 15 MINUTES EMERGENCY 52767 WILFREDO BUTT DEPT 0 0 EMERGENCY VISIT SERVICES HIGH SEVERITY& THREAT [facility] - 0 0 [facility] OUTPATIEN INC T EMERGENCY 40792 [facility] 0 0 [facility] DEPARTMEN INC T VISIT MODERATE SEVERITY EMERGENCY 06786 [facility] 0 0 [facility] DEPARTMEN INC T VISIT LOW/MODER SEVERITY EMERGENCY 79747 WILFREDO RUIZ 0 0 EMERGENCY [facility] DEPARTMEN SERVICES T VISIT MODERATE SEVERITY HOSPITAL [facility] - 0 0 [facility] OUTPATIEN INC T OFFICE 29353 Michelle NUÑEZ 0 0 BASIM VAZQUEZ T VISIT PSC 15 MINUTES OFFICE 27489 A Rema Martinez OUTPATIEN 0 0 BASIM VAZQUEZ T VISIT PSC 15 MINUTES OFFICE 05497 A Michelle DYER OUTPATIEN 0 0 BASIM Hodgson T VISIT PSC 15 MINUTES EMERGENCY 09820 [facility] 0 0 [facility] T VISIT LIMITED/M INOR [facility] HOSPITAL [facility] - 0 0 [facility] T OFFICE 17103 A Michelle DYER OUTPATIEN 0 0 BASIM Hodgson T VISIT PSC 15 MINUTES EMERGENCY 97451 WILFREDO RUIZ, 0 0 EMERGENCY [facility] T VISIT MODERATE ASSOCIATE SEVERITY [facility] - 0 0 [facility] T EMERGENCY 84160 [facility] 0 0 [facility] VISIT LOW/MODER SEVERITY OFFICE 45097 A Michelle DYER OUTPATIEN 0 0 BASIM Hodgson T VISIT PSC 15 MINUTES OFFICE 03481 Michelle BRUNO OUTPATIEN 9 9 BASIM Hodgson T VISIT PSC 15 MINUTES OFFICE 85502 Michelle BRUNO OUTPATIEN 9 9 BASIM Hodgson T VISIT PSC 15 MINUTES EMERGENCY 24903 WILFREDO MEEK 9 9 EMERGENCY [facility] SERVICES T VISIT MODERATE ASSOCIATE SEVERITY EMERGENCY 63480 [facility] 9 9 [facility] DEPARTMEN INC T VISIT LIMITED/M [facility] - 9 9 [facility] OUTPATIEN INC T OFFICE 15036 Michelle BRUNO OUTPATIEN 9 9 BASIM Hodgson T VISIT PSC 15 MINUTES OFFICE 29232 Michelle BRUNO OUTPATIEN 9 9 BASIM Hodgson T VISIT PSC 15 MINUTES OFFICE 64441 Michelle BRUNO OUTPATIEN 9 9 BASIM Hodgson T VISIT PSC 15 MINUTES OFFICE 63057 Michelle BRUNO OUTDAVID 9 9 BASIM Hodgson T VISIT PSC 15 MINUTES EMERGENCY 60010 [facility] 9 9 [facility] INC T VISIT LOW/MODER SEVERITY HOSPITAL [facility] - 9 9 [facility] OUTPATIEN INC T EMERGENCY 96811 JOSEPH RUIZ, [address] [facility] T VISIT ON MODERATE SEVERITY
--- OUTSIDE RECORDS SUMMARY | 2016-06-26 00:20 | External Medical Summary Rpt ---
Author Author , Organization [employer] Address Unknown Phone Unavailable Care Team Providers Care Chemical Librarian Name Role Phone A Rema STALLWORTH MD PSC, Michelle Unavailable Unavailable Rema STALLWORTH MD PSC RICO GÓMEZ Unavailable Unavailable BESSON ABRIL, BESSON Unavailable Unavailable ABRIL DANIEL, DANIEL Unavailable Unavailable [facility] Unavailable Unavailable SERVICE, [facility] Unavailable Unavailable SERVICE, [facility] SALVATORE CLAUDIA, Unavailable Unavailable SALVATORE CLAUDIA [facility] [place]available [place]available [place], [facility] [place] [facility] [place] [facility] [place] SARA, SARA Unavailable Unavailable SARA LAMINE, SARA Unavailable Unavailable LAMINE MARLEN RUIZ, Unavailable Unavailable MARLEN RUIZ [facility] Unavailable Unavailable INC, [facility] Unavailable Unavailable HOSPITAL P, [facility] Unavailable Unavailable [facility] Unavailable Unavailable IMAGING ASS, [facility] DARIAN BIRD, DARIAN Unavailable Unavailable [facility] Unavailable Unavailable SERVICES, [facility] PATRICK CRISTINA, PATRICK Unavailable Unavailable [facility], Unavailable Unavailable [facility], Unavailable Unavailable [facility] ELMIRA TOD, ELMIRA TOD Unavailable Unavailable NU JOSHUA, NU Unavailable Unavailable JOSHUA NU JOSHUA, NU Unavailable Unavailable JOSHUA SADEK MOH, SADEK MOH Unavailable Unavailable SOKAN BAB, SOKAN BAB Unavailable Unavailable [facility], Unavailable Unavailable [facility] SOTINGEANU BIBI, Unavailable Unavailable SOTINGEANU BIBI [facility] Unavailable Unavailable #591, [facility] # Unavailable Unavailable [id number], [facility] # [id number] LACIE FOR, WALKER Unavailable Unavailable FOR MURPHY MEEK, Unavailable Unavailable MURPHY MEEK WRIGHT A Unavailable Unavailable Michelle STALLWORTH WRIGHT, Unavailable Unavailable Michelle Hodgson Purpose Continuity of Care Document - 04-21-2008 through 2016 Problems Code Diagnosis DOS Provider Status [id number] PAIN IN 03-02-2016 [place] LEFT TOES [facility] [id number] UNSPECIFIED 03-02-2016 [facility]ANS, LESSER TOES PLLC INITIAL ENCNTR Z720 TOBACCO USE 03-02-2016 [facility] K529 NONINFECTIV 02-25-2016 [facility] E PHYSICIANS GASTROENTER GROUP ITIS & COLITIS UNS M545 LOW BACK 11-22-2015 [facility] PAIN PHYSICIANS GROUP 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 L739 FOLLICULAR 09-16-2015 [facility] DISORDER PHYSIC[facility]ANS, UNSPECIFIED PLLC K649 UNSPECIFIED 07-28-2015 [facility] PHYSICIANS HEMORRHOIDS GROUP K640 FIRST 07-25-2015 [facility] DEGREE PHYSICIANS, HEMORRHOIDS PLLC [id number] WEDGE 07-21-2015 [facility] COMPRS FX PHYSICIANS UNS LUMBAR GROUP VERT INIT ENC CLOS FX R202 PARESTHESIA 01-15-2015 [facility] SKIN AMBULANCE SERVICE R42 DIZZINESS 01-15-2015 [facility] P [id number] FOREIGN 01-15-2015 [facility] BODY IN PHYSICIANS, MOUTH PLLC INITIAL ENCOUNTER [id number] UNS ADVERS 01-15-2015 [facility] EFFECT PHYSICIANS, DRUG/MEDICA PLLC MENT INITIAL ENCNTR 5589 OTH&UNSPEC 09-05-2014 [facility] NONINFECTIO PHYSICIANS, PLL GASTROENTER ITIS&COLITI S 6822 CELLULITIS 03-22-2014 [facility] P 1119 UNSPECIFIED 03-06-2012 [facility] DERMATOMYCO SERVICES SIS 1179 OTHER AND 03-06-2012 [facility] UNSPECIFIED [facility] MYCOSES INC 6868 OTH SPEC 03-06-2012 [facility] LOCAL [facility] INFECTIONS INC SKIN&SUBCUT TISSUE 09356 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 7242 LUMBAGO 04-25-2011 NU JOSHUA 97424 PATHOLOGIC 04-25-2011 [place] FRACTURE OF MEDICAL VERTEBRAE IMAGING ASS 4660 ACUTE 04-10-2010 [place] [facility] 12747 PAIN IN 01-30-2010 [place] JOINT MEDICAL PELVIC IMAGING ASS REGION AND THIGH 24287 OTHER 01-30-2010 [place] DISORDER OF MEDICAL COCCYX IMAGING ASS 42306 CONTUSION 01-30-2010 [facility] OF [facility] 66095 OTHER 01-30-2010 [place] INJURY OF MEDICAL OTHER SITES IMAGING ASS OF TRUNK 34461 ABDOMINAL 12-21-2009 A Rema FERNANDEZ MD PSC GENERALIZED 68484 ABDOMINAL 12-20-2009 [facility], MEDICAL UNSPECIFIED IMAGING ASS SITE 54469 ACUTE 12-15-2009 [facility] SEROUS [facility] OTITIS INC MEDIA 3829 UNSPECIFIED 12-15-2009 [place] OTITIS [facility]ERGENCY MEDIA SERVICES 3899 UNSPECIFIED 12-15-2009 [facility]ING [facility] LOSS INC 0088 INTESTINAL 10-05-2009 A Rema STALLWORTH INFECTION P[facility] DUE TO OTHER ORGANISM NEC 6929 CONTACT 08-31-2009 A Rema STALLWORTH DERMATITIS& PSC OTHER [facility] DUE UNSPEC CAUSE 7821 RASH AND 08-28-2009 [facility] OTHER HOSPITAL NONSPECIFIC SKIN ERUPTION V583 ATTENTION 06-28-2009 A Rema MACIAS MD [facility] DRESSINGS AND SUTURES 8910 OPEN WOUND 06-18-2009 [place] KNEE EMERGENCY LEG&ANK SERVICES WITHOUT ASSOCIATES MENTION COMP 0340 STREPTOCOCC 11-27-2008 A Rema WANG MD [facility] THROAT 4659 ACUTE URIS 11-09-2008 A Rema BASS [facility] UNSPECIFIED SITE 7862 COUGH 11-09-2008 A Rema STALLWORTH MD [facility] 6926 CONTACT 05-19-2008 [place] DERMATITIS& EMERGENCY OTHER SERVICES [facility] DUE ASSOCIATES TO PLANTS 0549 HERPES 05-18-2008 A Rema STALLWORTH SIMPLEX [facility] WITHOUT MENTION OF COMPLICATIO N Medications Na ND Rx Da Fi Fi [...] 08 WN ZA 93 17 17 24 WI 2 31 PH IN AR E MA [...] 08 WN ZA 93 17 17 24 WI 2 31 PH IN AR E MA [...] BL ET CY NT HI AN A WI 59 02 03 10 5 00 HO [...] 08 WN ZA 93 17 17 01 WI 2 82 PH IN AR E MA 10 CY MG OF TA CY BL NT ET HI AN A GA 68 01 02 90 30 00 HO Ac BA 00 -2 -2 .0 00 ME ti PE 10 5- 4- 00 06 TO ve NT 00 20 20 08 WN IN 60 17 17 01 3 83 PH 60 AR 0 MA MG CY TA OF BL ET CY NT HI AN A LO 00 01 02 15 5 00 HO Ac PE 37 -1 -1 .0 00 ME ti RA 82 3- 7- 00 06 TO ve VT 10 20 20 07 WN DE 00 17 17 95 2 1 03 PH AR MG MA CY CA PS OF UL E CY NT HI AN A WI 00 01 02 30 10 00 HO Ac OM 60 -1 -1 .0 00 ME ti ET 35 3- 7- 00 06 TO ve FIERRO 43 20 20 07 WN ZI 83 17 17 95 NE 0 04 PH AR 25 MA CY MG OF TA BL CY ET NT HI AN A GA 68 12 01 90 30 00 HO Ac [...] 07 WN ZA 93 16 17 31 WI 2 91 PH IN AR E MA 10 CY MG OF TA CY BL NT ET HI AN A 00 02 02 0 10 5 EA 21 GA Ac 14 -2 -[address] 44 IN ti 31 8- 8- 00 SI 57 EY ve 47 20 20 DE 31 11 11 VT 0 PH CH AR AE MA L CY S OF CY NT HI AN A AZ 00 02 02 0 4. 4 EA 21 GA Ac IT 09 -2 -[address] 44 IN ti HR 37 8- 8- 0 SI 58 EY ve OM 14 20 20 DE YC 61 11 11 VT IN 8 PH CH AR AE 25 MA L 0 CY S MG OF TA BL CY ET NT HI AN A DI 00 12 12 0 14 7 SO 36 GA Ac CL 37 -2 -2 .0 PE 06 IN ti OF 86 0- 0- 00 RS 39 EY ve EN 28 20 20 AC 11 10 10 FA VT 0 VT CH SO LY AE D L DR [...] 20 20 DE IN 70 10 10 VT 5 PH CH 50 AR AE 0 [...] 20 RT 1 IN 20 10 10 VT 1 PH CH 50 AR AE 0 [...] 20 20 RT 7 10 09 09 VT 5 PH CH AR AE MA L CY S #5 91 CE 68 03 03 00 21 7 WA 70 GA Ac PH 18 -1 -2 .0 L- 11 IN ti AL 00 0- 6- 00 MA 54 EY ve EX 12 20 20 RT 8 IN 10 09 09 VT 1 PH CH 25 AR AE 0 [...] CY IN E #5 EA 91 R OP Procedures Procedure DOS Code Location Performer Comment RADEX TOE 52613 [place] DANIEL MINIMUM 7 MEDICAL 2 VIEWS IMAGING ASS 3D 36795 [place] SALVATORE RENDERING 6 MEDICAL CLAUDIA W/INTERP IMAGING & ASS POSTPROCE SS SUPERVISI ON MRI 32926 [facility] SPINAL 6 [facility] CANAL INC INC LUMBAR W/O CONTRAST MATERIAL MANUAL 97343 [facility] THERAPY 6 [facility] TQS 1/> INC INC REGIONS EACH 15 MINUTES APPLICATI 14296 [facility] ON 6 [facility] MODALITY INC INC 1/> AREAS HOT/COLD PACKS APPL 36039 [facility] MODALITY 6 [facility] 1/> AREAS INC INC ELEC STIMJ UNATTENDE D THERAPEUT 35997 [facility] IC PX 1/> 6 [facility] H[facility] AREAS INC INC EACH 15 MIN EXERCISES APPL 43172 [facility] MODALITY 6 [facility] 1/> AREAS INC INC ELEC STIMJ UNATTENDE D MANUAL 38981 [facility] THERAPY 6 [facility] TQS 1/> INC INC REGIONS EACH 15 MINUTES APPLICATI 72996 [facility] ON 6 [facility] MODALITY INC INC 1/> AREAS HOT/COLD PACKS THERAPEUT 92402 [facility] IC PX 1/> 6 [facility] AREAS INC INC EACH 15 MIN EXERCISES PHYSICAL 40634 [facility] THERAPY 6 [facility] EVALUATIO INC INC N UNCLASSIF J3490 [facility] IED DRUGS 6 [facility] INC INC RADEX 20648 [place] [facility] SPINE 6 MEDICAL LUMBOSACR IMAGING AL 03/17 ASS [facility] GROUND A0425 [facility] 5 AMBULANCE AMBULANCE PER SERVICE SERVICE STATUTE MILE AMBULANCE A0429 [facility] SERVICE 5 AMBULANCE AMBULANCE BLS SERVICE SERVICE EMERGENCY TRANSPORT ECG 42971 [facility] ROUTINE 5 [facility] ECG INC INC W/LEAST 12 LDS TRCG ONLY W/O I&R ECG 13396 [facility] [place] ROUTINE 5 [facility] W/LEAST P 12 LDS I&R ONLY SUSCEPTIB 50739 [facility] LTY STDY 5 [facility] ANTIMICRB INC INC IAL MICRO/AGA R DILUTJ CUL BACT 72884 [facility] XCPT 5 [facility] URINE INC INC BLOOD/STO OL AEROBIC ISOL CUL BACT 25963 [facility] AEROBIC 5 [facility] ADDL INC INC METHS DEFINITIV E EA ISOL RADEX 86040 [facility] SPINE 2 [facility] LUMBOSACR INC INC AL MINIMUM 4 VIEWS RADEX 70776 [place] SALVATORE SPINE 2 MEDICAL CLAUDIA LUMBOSACR IMAGING AL 2/3 [place] [address] [facility] [place] STREPTOCO 1 [facility] CCUS INC INC GROUP A IAADI 08821 [facility] INFLUENZA 1 [facility] B VIRUS INC INC IAADI 00350 [facility] INFFLUENZ 1 [facility] A A VIRUS INC INC RADEX 60373 [place] PATRICK SACRUM & 0 MEDICAL JONNIE COCCYX IMAGING MINIMUM 2 ASS VIEWS RADEX 37605 [facility] SPINE 0 MEDICAL CLAUDIA LUMBOSACR IMAGING AL ASS MINIMUM 4 VIEWS RADIOLOGI 09039 [place] PATRICK C 0 MEDICAL JONNIE EXAMINATI IMAGING ON PELVIS ASS 1/2 VIEWS COMPREHEN 63269 [facility] SIVE 0 [facility] [place] [address] [facility] AMYLASE 0 [facility] INC INC BLOOD 47080 [facility] COUNT 0 [facility] COMPLETE INC INC AUTO&[place] [address] [facility] LIPASE 0 [facility] INC INC RADEX ABD 87796 [place] SALVATORE COMPL 0 MEDICAL CLAUDIA AQT ABD IMAGING W/S/E/D ASS VIEWS 1 VIEW CH SMPL 19336 WILFREDO RUIZ, REPAIR 0 EMERGENCY MARLEN S SCALP/NEC SERVICES K/AX/NETO T/TRUNK ASSOCIATE 2.6-7.5CM S CLOSURE 8659 [facility] SKIN&SUBC 0 [facility] UTANEOUS INC INC TISSUE OTHER SITES IADNA 07793 Michelle BRUNO STREPTINDU 9 BASIM VAZQUEZ C CCUS PSC GROUP A QUANTIFIC ATION IADNA 22877 Michelle BRUNO 9 BASIM Hodgson CCUS PSC GROUP A QUANTIFIC ATION Encounters Encounter Start End Date Code Location Performer Type Date EMERGENCY 56290 [facility] 7 7 [facility] T VISIT MODERATE SEVERITY EMERGENCY 29932 [facility] 7 7 [facility] T [facility] LIMITED/M [facility] - 7 7 [facility] OUTPATIEN INC T OFFICE 72976 [facility] SARA OUTPATIEN 7 7 PHYSICIAN T VISIT S GROUP 25 MINUTES OFFICE 61154 [facility] SARA OUTPATIEN 6 6 PHYSICIAN LAMINE T VISIT S GROUP 15 MINUTES HOSPITAL [facility] - 6 6 [facility] OUTPATIEN INC T OFFICE 66377 [facility] SARA OUTPATIEN 6 6 PHYSICIAN LAMINE T VISIT S GROUP 15 MINUTES EMERGENCY 78502 [facility] 6 6 [facility] T VISIT LOW/MODER SEVERITY HOSPITAL [facility] - 6 6 [facility] OUTPATIEN INC T EMERGENCY 54042 [facility] GAMA 6 6 PHYSICIAN [facility] T VISIT MODERATE SEVERITY HOSPITAL [facility] - 6 6 [facility] OUTPATIEN INC T HOSPITAL [facility] - 6 6 [facility] OUTPATIEN INC T OFFICE 67292 [facility] SARA OUTPATIEN 6 6 PHYSICIAN LAMINE T VISIT S GROUP 10 MINUTES OFFICE 99023 [facility] ELMIRA TOD OUTPATIEN 6 6 PHYSICIAN T NEW 20 S GROUP MINUTES OFFICE 17127 [facility] SARA OUTPATIEN 6 6 PHYSICIAN LAMINE T VISIT S GROUP 10 MINUTES HOSPITAL [facility] - 6 6 [facility] OUTPATIEN INC T EMERGENCY 71879 [facility] MEDELLIN 6 6 PHYSICIAN FOR [facility], PLLC T VISIT MODERATE SEVERITY EMERGENCY 39398 [facility] 6 6 [facility] DEPARTMEN INC T VISIT LIMITED/M INOR PROB OFFICE 99884 [facility] SARA OUTPATIEN 6 6 PHYSICIAN LAMINE T NEW 30 S GROUP MINUTES EMERGENCY 59838 [facility] RUIZ 6 6 [facility] T VISIT MODERATE SEVERITY EMERGENCY 16464 [facility] 5 5 [facility] DEPARTMEN INC T VISIT LOW/MODER SEVERITY HOSPITAL [facility] - 5 5 [facility] OUTPATIEN INC T EMERGENCY 64307 [facility] MARISCAL 5 5 PHYSICIAN U [facility] T VISIT HIGH/URGE NT SEVERITY EMERGENCY 40646 [facility] MARISCAL 5 5 PHYSICIAN U [facility], [facility] T VISIT MODERATE SEVERITY EMERGENCY 00445 [facility] 5 5 [facility] DEPARTMEN INC T VISIT LOW/MODER SEVERITY HOSPITAL [facility] - 5 5 [facility] OUTPATIEN INC T HOSPITAL [facility] - 3 3 [facility] OUTPATIEN INC T EMERGENCY 44905 WILFREDO BUTT 3 3 EMERGENCY DEPARTMEN SERVICES T VISIT MODERATE SEVERITY EMERGENCY 86427 [facility] 3 3 [facility] DEPARTMEN INC T VISIT LIMITED/M [facility] - 2 2 [facility] OUTPATIEN INC T EMERGENCY 67990 WILFREDO RUIZ 2 2 EMERGENCY LAMINE DEPARTMEN SERVICES T VISIT MODERATE SEVERITY OFFICE 81916 NU NU OUTPATIEN 2 2 JOSHUA JOSHUA T VISIT 15 MINUTES EMERGENCY 68025 [facility] 2 2 [facility] DEPARTMEN INC T VISIT LOW/MODER SEVERITY HOSPITAL [facility] - 1 1 [facility] OUTPATIEN INC T EMERGENCY 39197 [facility] 1 1 [facility] T VISIT LOW/MODER SEVERITY EMERGENCY 07818 WILFREDO RUIZ 1 1 EMERGENCY [facility] SERVICES T VISIT HIGH/URGE NT SEVERITY EMERGENCY 84707 [facility] 0 0 [facility] T VISIT LOW/MODER SEVERITY HOSPITAL [facility] - 0 0 [facility] T OFFICE 96882 A Rema STALLWORTH A OUTPATIEN 0 0 BASIM VAZQUEZ T VISIT PSC 15 MINUTES HOSPITAL [facility] - 0 0 [facility] EMERGENCY 04771 WILFREDO TAMERAArmida BAB DEPT 0 0 EMERGENCY VISIT SERVICES HIGH SEVERITY& THREAT FUNCJ EMERGENCY 69591 [facility] 0 0 [facility] T VISIT MODERATE SEVERITY EMERGENCY 58155 WILFREDO RUIZ 0 0 EMERGENCY [facility] SERVICES T VISIT MODERATE SEVERITY EMERGENCY 33055 [facility] 0 0 [facility] T VISIT LOW/MODER SEVERITY HOSPITAL [facility] - 0 0 [facility] T OFFICE 82103 A Rema STALLWORTH A OUTPATIEN 0 0 BASIM VAZQUEZ T VISIT PSC 15 MINUTES OFFICE 88029 A Rema Martinez OUTPATIEN 0 0 BASIM VAZQUEZ T VISIT PSC 15 MINUTES OFFICE 30744 A Michelle DYER OUTPATIEN 0 0 BASIM Hodgson T VISIT PSC 15 MINUTES EMERGENCY 55605 [facility] FARMER [address] [facility] [facility] T VISIT LIMITED/M INOR [facility] HOSPITAL [facility] - 0 0 [facility] T OFFICE 75707 A Rema STALLWORTH A OUTPATIEN 0 0 BASIM Hodgson T VISIT PSC 15 MINUTES HOSPITAL [facility] - 0 0 [facility] OUTPATIEN INC T EMERGENCY 75605 [facility] 0 0 [facility] DEPARTMEN INC T VISIT LOW/MODER SEVERITY EMERGENCY 60661 WILFREDO RUIZ, [address] [facility] SERVICES T VISIT MODERATE ASSOCIATE SEVERITY S OFFICE 45811 Michelle BRUNO OUTPATIEN 0 0 BASIM Hodgson T VISIT PSC 15 MINUTES OFFICE 09699 Michelle BRUNO OUTPATIEN 9 9 BASIM Hodgson T VISIT PSC 15 MINUTES OFFICE 71685 Michelle BRUNO OUTPATIEN 9 9 BASIM Hodgson T VISIT PSC 15 MINUTES EMERGENCY 63709 [facility] 9 9 [facility] DEPARTMEN INC T VISIT LIMITED/M [facility] - 9 9 [facility] OUTPATIEN INC T EMERGENCY 83785 WILFREDO MEEK, 9 9 EMERGENCY [facility] SERVICES T VISIT MODERATE ASSOCIATE SEVERITY S OFFICE 35126 Michelle BRUNO OUTPATIEN 9 9 BASIM Hodgson T VISIT PSC 15 MINUTES OFFICE 19815 Michelle BRUNO OUTPATIEN 9 9 BASIM Hodgson T VISIT PSC 15 MINUTES OFFICE 44275 Michelle BRUNO OUTPATIEN 9 9 BASIM Hodgson T VISIT PSC 15 MINUTES OFFICE 20013 Michelle BRUNO OUTPATIEN 9 9 BASIM Hodgson T VISIT PSC 15 MINUTES HOSPITAL [facility] - 9 9 [facility] OUTPATIEN INC T EMERGENCY 58745 [facility] 9 9 [facility] DEPARTMEN INC T VISIT LOW/MODER SEVERITY EMERGENCY 40930 JOSEPH RUIZ, 9 9 [facility] T VISIT ON MODERATE SEVERITY
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
--- OUTSIDE RECORDS SUMMARY | 2016-06-26 00:21 | External Medical Summary Rpt ---
Author Author [employer] Organization [employer] Address Unknown Phone Unavailable
--- OUTSIDE RECORDS SUMMARY | 2016-06-26 00:21 | External Medical Summary Rpt ---
Demographics Preferred Language Setswana Marital Status Unknown Gnosticist Affiliation Unknown Race Unknown Ethnic Group Unknown Author Author , Organization [employer] Address Unknown Phone Unavailable Purpose Continuity of Care Document - through 2016 Immunization No patient found.
--- OUTSIDE RECORDS SUMMARY | 2016-06-26 00:21 | External Medical Summary Rpt ---
Demographics Preferred Language Chinese Marital Status Unknown Sikh Affiliation Unknown Race Unknown Ethnic Group Unknown Author Author , Organization [employer] Address Unknown Phone Unavailable Purpose Continuity of Care Document - through 2016 Immunization No patient found.
[2016-06-26] MEDS ORDERED: KEFLEX 500MG.500 MG PO (00:33)
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
[2016-06-26 00:49] VITALS: BP 120/73
== END 2016-06-26 00:50 | disposition home or self-care (01) ==
LOC: ER 23:40
DX: K05.00 Acute gingivitis, plaque induced (principal); Z72.0 Tobacco use; K02.9 Dental caries, unspecified